=== PATIENT | female | born 1965 | race African-American/Black ===

== ENCOUNTER 2020-07-11 12:06 | Emergency (ER) | payer OTHER ==
[~2020-07-11] VITALS: Ht 157.5 cm; Wt 68.0 kg
[2020-07-11] MEDS ORDERED: Tylenol #3 tab (300mg/30mg) ORAL ONE (12:45)
[2020-07-11 13:24] VITALS: BP 114/70
--- NOTE | 2020-07-11 14:06 | Emergency Room Report ---
History of Present Illness General Chief Complaint: Multiple Trauma/Fall Source: Patient Present Illness HPI 54-year-old female with no known past medical history other than recent headache diagnosis of Covid x2 weeks here complaining of right wrist and left foot pain after fall earlier today. Patient reports that she was walking near her desk stop and landed on outstretched hand. Obvious deformity to right wrist noted. No open fracture noted. Rates the pain 10 without radiation. Is neurovascularly intact. Has not taken medication for symptom relief. Denies chest pain, shortness of breath, headache and dizziness. 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 COVID-19 Screening: Positive COVID-19 COVID-19 Testing Source: two weeks ago Patient History Past Medical History: unable to obtain Past Surgical History: none Pertinent Family History: none Last Menstrual Period: none Now: No Reviewed Nursing Documentation: PMH: Agreed; PSxH: Agreed Nursing Documentation-PMH Past Medical History: No History, Except For Review of Systems All Other Systems: negative except mentioned in HPI Physical Exam Vital Signs Date Time Temp Pulse Resp B/P (MAP) Pulse Ox O2 Delivery O2 Flow Rate FiO2 07/11/20 12:14 97.3 66 18 114/70 (85) 95 Room Air Sp02 EP Interpretation: reviewed, normal General Appearance: normal inspection, alert, no apparent distress, GCS 15 Head: normocephalic, atraumatic Eyes: normal eye exam, PERRL, EOMI, lids + conjunctiva normal, no hyphema, no racoon eyes ENT: normal ENT inspection, TMs + canals normal, oropharynx normal, no dougherty signs Neck: trach midline, no bony tend, full range of motion without pain Respiratory: effort normal, no retractions, clear to auscultation, chest symmetrical, palpation of chest normal, speaking in full sentences Cardiovascular: regular rate, rhythm, no JVD Cardiovascular #2: 2+ radial (R), 2+ radial (L) Gastrointestinal: normal inspection, non-tender, non-distended, no rebound/guarding, normal bowel sounds Musculoskeletal: gait & station normal, other - Tenderness right distal radius with obvious deformity Skin: no rash Lymphatic: normal inspection Neurologic: oriented x3, sensory intact, motor strength/tone normal, normal speech Psychiatric: normal inspection, memory normal, mood normal, no campos icidal/homicidal ideation Procedures Splinting Splinting : Consent: Verbal Location: Right breast Splint: sugar-tong Pre-Proc Neuro Vasc Exam: normal Post-Proc Neuro Vasc Exam: normal Patient Tolerated: Well Complications: None Progress Arm sling applied Medical Decision Making PA Attestation All my diagnosis and treatment plans were reviewed ad discussed with my supervising physician Dr. Law Diagnostic Impression: Primary Impression: Nondisplaced fracture of radius Additional Impressions: Nondisplaced fracture of distal end of ulna Ankle sprain ER Course 54-year-old female with no known past medical history other than recent headache diagnosis of Covid x2 weeks here complaining of right wrist and left foot pain after fall earlier today. Patient reports that she was walking near her desk stop and landed on outstretched hand. Obvious deformity to right wrist noted. No open fracture noted. Rates the pain 10 without radiation. Is neurovascularly intact. Has not taken medication for symptom relief. Denies chest pain, shortness of breath, headache and dizziness. Ddx considered but are not limited to : Wrist sprain, wrist strain, wrist fracture Vital signs: are WNL, pt. is afebrile H&PE are most consistent with: Nondisplaced fracture of distal end of radius, ankle sprain, nondisplaced fracture of distal end of the ulna ORDERS: Wrist x-ray, ankle x-ray, Tylenol 3, regular Tylenol ED INTERVENTIONS: Tylenol 3, splint was applied and sling was applied DISCHARGE: At this time pt. is stable for d/c to home. Will provide printed patient care instructions, and any necessary prescriptions. Care plan and follow up instructions have been discussed with the patient prior to discharge. Patient take medication as directed, follow-up with interior specialist for further evaluation, keep the splint on, if worsening symptoms return to the emergency room Other X-Ray Diagnostic Results Other X-Ray Diagnostic Results #1: X-Ray ordered: Right wrist # of Views/Limited Vs Complete: 3 View Indication: Pain EP Interpretation: Yes Interpretation: no soft tissue swelling, other - Distal radial and ulnar fracture Impression: Other - Wrist fracture Electronically Signed by: Екатерина Guzman PA-C PA Scribe Text FINDINGS: There is an acute, moderately impacted transverse distal radial fracture with extension to the articular surface. There is mild dorsal angulation. Cortical discontinuity of the ulnar styloid also likely represents acute fracture. Joint spaces are maintained. There is diffuse soft tissue swelling around the wrist. IMPRESSION: 1. Intra-articular distal radial fracture with resulting mild dorsal angulation. 2. Likely acute nondisplaced ulnar styloid fracture. Other X-Ray Diagnostic Results #2: X-Ray ordered: Left foot # of Views/Limited Vs Complete: 3 View Indication: Pain EP Interpretation: Yes Interpretation: no dislocation, no soft tissue swelling, no fractures Impression: No acute disease Electronically Signed by: Екатерина Guzman PA-C Other X-Ray Diagnostic Results #3: X-Ray ordered: Left ankle # of Views/Limited Vs Complete: 3 View Indication: Pain EP Interpretation: Yes Interpretation: no dislocation, no soft tissue swelling, no fractures Impression: No acute disease Electronically Signed by: Екатерина Guzman PA-C Last Vital Signs Date Time Temp Pulse Resp B/P (MAP) Pulse Ox O2 Delivery O2 Flow Rate FiO2 07/11/20 13:09 97.3 07/11/20 12:14 66 18 114/70 (85) 95 Room Air Disposition: HOME, SELF-CARE Condition: Stable Scripts Methocarbamol* (ROBAXIN-500*) 500 Mg Tablet 500 MG ORAL TID PRN for For Pain, #15 TAB 0 Refills Prov: Екатерина Winter 07/11/20 Acetaminophen With Codeine (T#3) (TYLENOL #3 TAB*) Y Tab 1 TAB ORAL Q8HR PRN for For Pain for 4 Days, #12 TAB Prov: Екатерина Winter 07/11/20 Acetaminophen* (TYLENOL EXTRA STRENGTH*) 500 Mg Tablet 500 MG ORAL Q8H PRN for Prn Headache/Temp > 101, #30 TAB 0 Refills Prov: Екатерина Winter 07/11/20 Referrals: ARVIND DOVE,REFERRING (PCP) Patient Instructions: Ankle Sprain, [id number], Wrist Fracture Additional Instructions: Take medication as directed, follow-up with interior specialist, keep the splint on, if worsening symptoms return to the emergency room Екатерина Winter Jul 11, 2020 14:05
[2020-07-11] MEDS ORDERED: TYLENOL EXTRA500 MG ORAL (14:07)
[2020-07-11] MEDS ORDERED: ROBAXIN-500MG ORAL (14:07)
[2020-07-11] MEDS ORDERED: ACETAMINOPHEN-1 EAC1 ORAL (14:07)
[2020-07-11 14:15] VITALS: BP 116/80
--- NOTE | 2020-07-11 15:53 | Diagnostic Imaging Report ---
INDICATION: Foot and ankle pain after trauma TECHNIQUE: Frontal, lateral, and oblique views of the left foot and ankle COMPARISON: None FINDINGS: No acute fracture or dislocation. Joint spaces are maintained. Cortically based sclerotic focus in the distal anterior tibia is noted. Talar dome is unremarkable. Ankle mortise is preserved on these nonstress views. No significant ankle joint effusion. No acute soft tissue abnormality. IMPRESSION: 1. No acute fracture or dislocation. 2. Cortically based sclerotic focus in the distal fibula, the differential for which includes ossified nonossifying fibroma or bone infarct, but is likely benign in etiology
--- NOTE | 2020-07-11 15:55 | Diagnostic Imaging Report ---
INDICATION: Wrist pain TECHNIQUE: Frontal, oblique, and lateral views of the right wrist COMPARISON: None FINDINGS: There is an acute, moderately impacted transverse distal radial fracture with extension to the articular surface. There is mild dorsal angulation. Cortical discontinuity of the ulnar styloid also likely represents acute fracture. Joint spaces are maintained. There is diffuse soft tissue swelling around the wrist. IMPRESSION: 1. Intra-articular distal radial fracture with resulting mild dorsal angulation. 2. Likely acute nondisplaced ulnar styloid fracture.
== END 2020-07-11 14:15 | disposition home or self-care (01) ==
LOC: EMR 12:43
DX: S52.571A Other intraarticular fracture of lower end of right radius, initial encounter for closed fracture (principal); S52.614A Nondisplaced fracture of right ulna styloid process, initial encounter for closed fracture; W01.0XXA Fall on same level from slipping, tripping and stumbling without subsequent striking against object, initial encounter; Y93.01 Activity, walking, marching and hiking; Y92.89 Other specified places as the place of occurrence of the external cause; Z88.1 Allergy status to other antibiotic agents; Z88.6 Allergy status to analgesic agent
CPT/HCPCS: 29125; 73110; 73610; 73630; Z7502; 99284

== ENCOUNTER 2020-07-13 14:52 | Emergency (ER) | payer OTHER ==
[~2020-07-13] VITALS: Ht 154.9 cm; Wt 68.0 kg
[~2020-07-13 14:52] MED LIST: ACETAMINOPHEN-1 EAC1 ORAL; ROBAXIN-500MG ORAL; TYLENOL EXTRA500 MG ORAL
[2020-07-13 15:15] VITALS: BP 121/68
--- NOTE | 2020-07-13 15:57 | NUR ---
ED Nurse Note: Pt walked into ED for R arm splint. She was in ED 3 days ago and had splint applied to R arm for fracture. She states it is too tight and fingers are numb. Pt is able to move fingers. R radial pulse 3+. She is alert and orientedx4, ambulatory.
--- NOTE | 2020-07-13 16:47 | Emergency Room Report ---
History of Present Illness General Chief Complaint: Wound Recheck/Suture Removal Source: Patient Present Illness HPI 54-year-old female presents to the emergency department for complaint of swelling and numbness to the right hand progressive x3 days. Patient was seen here in the ER 3 days ago and diagnosed with distal wrist fracture. Patient was placed in a sugar tong splint. Patient reports that the splint is now uncomfortable for her and she has some tingling sensation in her palm. Pt. reports pain/discomfort is 6/10 in severity. She denies significant increase in pain. She reports she is able to move her fingers easily. She denies skin color changes. She denies additional trauma or fall. Pt. reports she has not been able to follow up with orthopedist yet. Pt. reports her pain is well controlled at home with her previously prescribed medications. She is just concerned of the swelling. 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 COVID-19 Screening: PUI COVID-19 COVID-19 Testing Source: nasal Patient History Past Medical History: see triage record Now: No Reviewed Nursing Documentation: PMH: Agreed; PSxH: Agreed Nursing Documentation-PMH Past Medical History: No History, Except For Review of Systems All Other Systems: negative except mentioned in HPI Physical Exam Vital Signs Date Time Temp Pulse Resp B/P (MAP) Pulse Ox O2 Delivery O2 Flow Rate FiO2 07/13/20 14:59 98.2 83 17 116/66 (83) 99 Room Air Sp02 EP Interpretation: reviewed, normal General Appearance: no apparent distress, alert, GCS 15, non-toxic Head: normocephalic, atraumatic Eyes: bilateral eye normal inspection, bilateral eye PERRL ENT: hearing grossly normal, normal voice Neck: full range of motion Respiratory: lungs clear, normal breath sounds, speaking full sentences Cardiovascular #1: regular rate, rhythm, normal capillary refill Musculoskeletal: normal range of motion, gait/station normal, tender - right wrist, swelling - Right wrist. , other - NO tenderness to the right digits. FROM. some swelling noted. Neurologic: alert, motor strength/tone normal, oriented x3, sensory intact, responsive, speech normal, grossly normal, other - paresthesia to the right palm. Psychiatric: judgement/insight normal Skin: normal color Medical Decision Making PA Attestation Dr. Khan Is my supervising Physician whom patient management has been discussed with. Diagnostic Impression: Primary Impression: Aftercare for cast or splint check or change ER Course 54-year-old female presents to the emergency department for complaint of swelling and numbness to the right hand progressive x3 days. Patient was seen here in the ER 3 days ago and diagnosed with distal wrist fracture. Patient was placed in a sugar tong splint. Patient reports that the splint is now uncomfortable for her and she has some tingling sensation in her palm. Pt. reports pain/discomfort is 6/10 in severity. She denies significant increase in pain. She reports she is able to move her fingers easily. She denies skin color changes. She denies additional trauma or fall. Pt. reports she has not been able to follow up with orthopedist yet. Pt. reports her pain is well controlled at home with her previously prescribed medications. She is just concerned of the swelling. Ddx considered but are not limited to compartment syndrome, nerve palsy, Fracture, circulatory compromise, Sprain/Strain/Spasm, just to name a few. Vital signs: are WNL, pt. is afebrile H&PE are most consistent with recent immobilization of the right wrist in a sugar tong splint. There is some swelling noted and positioning of splint appears to be uncomfortable. Normal skin color of the affected hand/digits. Normal palpable temperature. Patient has full range of motion. ORDERS: - Remove and replace Sugar tong splint. ED INTERVENTIONS: -Right sugar tong splint applied by RN. Pt. remains neurovascularly intact. -Upon reevaluation patient reports that her arm and hand are much more comfortable. She reports the right palm paresthesia has resolved. DISCHARGE: At this time pt. is stable for d/c to home. Will provide printed pa tient care instructions, and any necessary prescriptions. Care plan and follow up instructions have been discussed with the patient prior to discharge. Last Vital Signs Date Time Temp Pulse Resp B/P (MAP) Pulse Ox O2 Delivery O2 Flow Rate FiO2 07/13/20 15:15 98.2 80 18 121/68 97 Room Air Status: improved Disposition: HOME, SELF-CARE Condition: Stable Referrals: ARVIND DOVE,REFERRING (PCP) Orthopedic Ur[facility] Patient Instructions: Cast or Splint Care, [id number] Additional Instructions: Take medications as directed. Follow up with an FLAT MACHINE CUTTER in 3-5 days, even if your symptoms have resolved. --Please review list of primary care clinics, if you do not already have a primary care provider who can give you an Orthopedic Referral. Return sooner to ED if new symptoms occur, or current symptoms become worse. - Please note that this Emergency Department Report was dictated using [employer] programmer analyst technology software, occasionally this can lead to erroneous entry secondary to interpretation by the dictation equipment. Shanelle Ott Jul 13, 2020 16:47
--- NOTE | 2020-07-13 17:05 | NUR ---
ER DISCHARGE NOTE: Patient is cleared to be discharged per ERMD, pt is aox4, on room air, with stable vital signs. pt was given dc instructions, pt was able to verbalize understanding, pt id band removed. pt is able to ambulate with steady gait. pt took all belongings. Splint applied by Og LEE. Pt educated regarding f/u.
[2020-07-13 17:06] VITALS: BP 127/64
== END 2020-07-13 17:07 | disposition home or self-care (01) ==
LOC: EMR 16:38
DX: Z46.89 Encounter for fitting and adjustment of other specified devices (principal); S62.101D Fracture of unspecified carpal bone, right wrist, subsequent encounter for fracture with routine healing; X58.XXXD Exposure to other specified factors, subsequent encounter; Z88.6 Allergy status to analgesic agent; Z88.1 Allergy status to other antibiotic agents
CPT/HCPCS: 29125; Z7502; 99282